=== PATIENT | female | born 1990 | race Caucasian/White ===

== ENCOUNTER → 2021-11-19 22:57 | Observation (INO) | END | disposition home or self-care (01) | LOC: 1NENULAB | PROVIDERS: ADMIT Registered Nurse; ATTEND Registered Nurse ==

== ENCOUNTER → 2021-11-25 16:50 | Observation (INO) | END | disposition home or self-care (01) | LOC: 1NENULAB | PROVIDERS: ADMIT Registered Nurse; ATTEND Registered Nurse ==

== ENCOUNTER 2021-11-26 12:59 | Observation (INO) ==
[2021-11-26] MEDS ORDERED: EPHEDrine 50 MG/ML VIAL IVP PRN (13:31)
[2021-11-26] MEDS ORDERED: Epidural Premix (fent/bupiv) 110 ML EP SCH (13:45)
== END 2021-11-26 17:00 | disposition left against medical advice (07) ==
LOC: 1NENULAB
PROVIDERS: ADMIT Advanced Practice Midwife; ATTEND Advanced Practice Midwife

== ENCOUNTER 2021-11-26 19:54 | Inpatient (IN) ==
[2021-11-26] MEDS ORDERED: Ibuprofen 800 MG TABLET PO PRN (20:19)
[2021-11-26] MEDS ORDERED: Ibuprofen 400 MG TABLET PO PRN (21:00)
[2021-11-26] MEDS ORDERED: Ondansetron ODT 4 MG TAB.RAPDIS SL PRN (21:02)
[2021-11-26] MEDS ORDERED: Benzocaine/Menthol 56 GM AEROSOL SPRAY TP PRN ×2 (21:02→23:26)
[2021-11-26] MEDS ORDERED: Rho Immune Globulin 1,500 UNIT SYRINGE IM PRN (21:02)
[2021-11-26] MEDS ORDERED: Lanolin 7 G OINT...G. TP PRN ×2 (21:02→23:26)
[2021-11-26] MEDS ORDERED: Measles/Mumps/Rubella Vacc 0.5 ML VIAL SQ PRN ×2 (21:02→23:26)
[2021-11-26] MEDS ORDERED: Acetaminophen 325 MG TABLET PO SCH (21:15)
[2021-11-27] MEDS ORDERED: Ibuprofen 600 MG TABLET PO SCH (00:02)
[2021-11-27] MEDS: Acetaminophen 325 MG TABLET PO SCH ×2 (05:56→19:18)
[2021-11-27] MEDS ORDERED: Prenatal Vit/FA 1 EACH TABLET PO SCH ×2 (09:00)
[2021-11-27] MEDS: Ibuprofen 600 MG TABLET PO PRN ×2 (09:11→16:52)
[2021-11-27 20:56] VITALS: O2SAT 98
[2021-11-27 22:07] VITALS: BP 108/53; PULSE 86; TEMP 97.8
== END 2021-11-27 21:40 | disposition home or self-care (01) | DRG 560 ==
LOC: 1NENULAB 19:54 → 1NENUOBS 11-27 00:04
PROVIDERS: ADMIT Advanced Practice Midwife; ATTEND Advanced Practice Midwife